=== PATIENT | male | born 1965 | race Two or more races ===

== ENCOUNTER 2021-07-17 19:24 | Inpatient (IN) | payer OTHER ==
[~2021-07-17] VITALS: Ht 152.4 cm; Wt 94.3 kg
[~2021-07-17 19:24] MED LIST: Avapro PO; HumaLOG 100 UNIT/1 ML (3ML) SUBCUTANEO; Lantus 1000 U/10 ML SUBCUTANEO; Procardia Xl 30MG TAB PO
[2021-07-17] MEDS ORDERED: METFORMIN HCL500 M3 (19:34)
[2021-07-17] MEDS ORDERED: GLIPIZIDE XL2.5 MG (19:34)
--- NOTE | 2021-07-17 19:39 | NUR ---
SE RECIBE PACIENTE ALERTA Y ORIENTADO X3 QUIEN REFIERE [facility] DONDE LE INDICARON QUE TENIA SKYLER ULCERA EN EL PIE DERECH. SE OBSERVA ULCERA SUPURANDO Y AREA ALREDEDOR ENROJECIDA Y CALIENTE AL TACTO . SE MONITOREAN LOS SV DXT EN 396. SE UBICA EN OBSERVACION.
--- NOTE | 2021-07-17 20:15 | NUR ---
SE ORIENTA PTE SOBRE TX MEDICO EL CUAL REFIERE ENTENDER.SE LE EXTRAEN MUESTRAS BAJO MEDIDAS ASEPTICAS,SE CANALIZA Y SE ADMINISTRAN MEDICAMENTOS HEATHER ORDEN MEDICA.SE NOTIFICA XRAY.
[2021-07-20] MEDS ORDERED: AVAPRO300 MG PO (13:25)
== END 2021-08-05 22:08 | disposition home or self-care (01) | DRG 638 ==
LOC: ER 19:24 → SURH 07-18 04:31
PROVIDERS: ADMIT Internal Medicine; ATTEND Internal Medicine
PROC: B53BZZZ Magnetic Resonance Imaging (MRI) of Right Lower Extremity Veins (ICD-10-PCS; 2021-07-23)
PROC: 0HBMXZZ Excision of Right Foot Skin, External Approach (ICD-10-PCS; principal; 2021-07-25)
DX: E11.621 Type 2 diabetes mellitus with foot ulcer (principal); L97.518 Non-pressure chronic ulcer of other part of right foot with other specified severity; L03.115 Cellulitis of right lower limb; L97.412 Non-pressure chronic ulcer of right heel and midfoot with fat layer exposed; L02.611 Cutaneous abscess of right foot; M86.8X7 Other osteomyelitis, ankle and foot; E11.51 Type 2 diabetes mellitus with diabetic peripheral angiopathy without gangrene; E11.628 Type 2 diabetes mellitus with other skin complications; E11.65 Type 2 diabetes mellitus with hyperglycemia; Z79.4 Long term (current) use of insulin; I10 Essential (primary) hypertension; D72.828 Other elevated white blood cell count; B95.61 Methicillin susceptible Staphylococcus aureus infection as the cause of diseases classified elsewhere; B95.2 Enterococcus as the cause of diseases classified elsewhere; B96.1 Klebsiella pneumoniae [K. pneumoniae] as the cause of diseases classified elsewhere; Z20.822 Contact with and (suspected) exposure to COVID-19
CPT/HCPCS: 73722; 73725

== ENCOUNTER → 2023-11-05 | Emergency (ER) | payer OTHER ==
[~2023-11-05] VITALS: Ht 172.7 cm; Wt 84.4 kg
[~2023-11-05] MED LIST changes: +AVAPRO300 MG PO; +ELIQUIS5 MG; +FARXIGA10 MG; +GLIPIZIDE XL2.5 MG; +HUMALOG100 UNIT/2; +LANTUS SOL100 UNIT/1; +LIPITOR40 M1; +METFORMIN HCL500 M3; +PIPERACILLIN/TAZOBACTAM SODIUM 3.375 GM VIAL IV ONE; +TOPROL XL200 MG; +ZESTRIL40 M1
[2023-11-05 21:54] LABS: HEMATOCRIT 37.8 % (39.0-48.0); HEMOGLOBIN 12.9 g/dL (13-16.00); MEAN CELL VOLUME 83.8 fL (80.0-100.00); MEAN CORPUSCULAR HEMOGLOBIN 28.7 pg (27.00-32.0); MEAN CORPUSCULAR HGB CONC 34.2 g/dl (32.0-36.0); PLATELET COUNT 389 K/uL (150-450); RED BLOOD COUNT 4.51 M/uL (4.00-6.00); RED CELL DISTRIBUTION WIDTH 14.8 % (11.5-14.5)
[2023-11-05 22:14] LABS: CALCIUM 9.1 mg/dL (8.5-10.1); CREATININE SERUM 0.99 mg/dL (0.70-1.30); GFR 77.92; POTASSIUM 4.13 mEq/L (3.5-5.1)
== END | disposition home or self-care (01) ==
LOC: ER 20:33
PROVIDERS: General Practice
DX: E22.8 Other hyperfunction of pituitary gland (principal)

== ENCOUNTER 2023-11-06 04:58 | Inpatient (IN) | payer OTHER ==
[~2023-11-06] VITALS: Ht 180.3 cm; Wt 188.7 kg
[~2023-11-06 04:58] MED LIST changes: -ELIQUIS5 MG; -FARXIGA10 MG; -HUMALOG100 UNIT/2; -LANTUS SOL100 UNIT/1; -LIPITOR40 M1; -PIPERACILLIN/TAZOBACTAM SODIUM 3.375 GM VIAL IV ONE; -TOPROL XL200 MG; -ZESTRIL40 M1
[2023-11-06] MEDS ORDERED: ZESTRIL40 M1 (05:17)
[2023-11-06] MEDS ORDERED: LIPITOR40 M1 (05:17)
[2023-11-06] MEDS ORDERED: HUMALOG100 UNIT/2 (05:18)
[2023-11-06] MEDS ORDERED: ELIQUIS5 MG (05:18)
[2023-11-06] MEDS ORDERED: FARXIGA10 MG (05:18)
[2023-11-06] MEDS ORDERED: TOPROL XL200 MG (05:18)
[2023-11-06] MEDS ORDERED: LANTUS SOL100 UNIT/1 (05:18)
--- NOTE | 2023-11-06 05:26 | NUR ---
PACIENTE ALERTA Y ORIENTADO X3 QUIEN REFIERE DOLOR EN EL PIE JEAN. PACIENTE DIABETICO EL CUAL PRESENTA ULCERA EN PIE Y REFIERE SUPURACION.
[2023-11-06] MEDS ORDERED: PIPERACILLIN/TAZOBACTAM SODIUM 3.375 GM in 0.9 % SODIUM CHLORIDE 100 ML IV SCH (06:01)
[2023-11-06] MEDS ORDERED: 0.9 % SODIUM CHLORIDE 1,000 ML IV ONE (06:15)
--- NOTE | 2023-11-06 06:22 | NUR ---
SE EDUCA A PACIENTE SOBRE TRATAMIENTO SOLICITADO POR MD EN TURNO EL CUAL REFIERE ENTENDER. SE PROCEDE A CHADD MUESTRAS DE LAB BAJO MEDIDAS ASEPTICAS Y ADMINISTRACION DE MEDICAMENTOS HEATHER ORDEN MEDICA.
[2023-11-06 07:09] LABS: HEMATOCRIT 35.7 % (39.0-48.0); HEMOGLOBIN 12.4 g/dL (13-16.00); MEAN CELL VOLUME 82.8 fL (80.0-100.00); MEAN CORPUSCULAR HEMOGLOBIN 28.7 pg (27.00-32.0); MEAN CORPUSCULAR HGB CONC 34.7 g/dl (32.0-36.0); PLATELET COUNT 392 K/uL (150-450); RED BLOOD COUNT 4.31 M/uL (4.00-6.00)
--- NOTE | 2023-11-06 07:53 | NUR ---
PTE MASCULINO ALERTA Y ORIENTADO X3 AL QUE SE LE ORIENTA SOBRE CONTINUIDAD DE TRATAMIENTO MEDICO Y REFIERE ENTENDER. SE OBSERVA PTE EN CAMINA CON BARANDAS ELEVADAS Y EN LAZAR NIVEL MAS BAJO POR PRECAUCION A CAIDA. SE OBSERVA PTE PREVIAMENTE CANALIZADO CON VENOPUNCION PATENTE CELIO DE EDEMA Y ERITEMA. RECIBIENDO 0.9 NSS BAJANDO A 125ML/HR. SE MONITOREAN S/V Y SE DOCUMENTAN EN SISTEMA.
[2023-11-06 07:56] LABS: ALBUMIN 2.8 gm/dL (3.4-5.0); BILIRUBIN TOTAL 0.47 mg/dL (0.3-1.2); CREATININE SERUM 0.84 mg/dL (0.70-1.30); GFR 94.18; GLOBULINA 5.7 G/DL (2.4-3.5); POTASSIUM 3.83 mEq/L (3.5-5.1); TOTAL PROTEIN 8.5 gm/dL (6.4-8.2)
[2023-11-06 08:32] LABS: INR 1.05; PARTIAL THROMBOPLASTIN TIME 29.3 SECONDS (22.0-34.0); PROTHROMBIN TIME 11.4 SECONDS (9.0-11.5)
[2023-11-06 08:41] LABS: PH,URINE 5.5 (5.0-8.0); URINE APPEARANCE Clear; URINE BILIRRUBIN Negative (NEGATIVE); URINE BLOOD Trace; URINE COLOR Yellow; URINE KETONE Trace (NEGATIVE); URINE LEUKOCYTE Negative; URINE NITRATE Negative; URINE PROTEIN Trace (NEGATIVE); URINE UROBILINOGEN 0.2 E.U./dl
[2023-11-06 08:47] LABS: URINE BACTERIA 13.8 uL (0.0-1933); URINE EPITHELIAL CELLS 8.8 uL (0.0-38.8); URINE RBC 14.5 uL (0.0-20.8); URINE WBC 7.1 uL (0.0-23.2)
[2023-11-06 08:56] LABS: URINE GLUCOSE >=1000 MG/DL (NEGATIVE)
[2023-11-06] MEDS ORDERED: CLINDAMYCIN PHOSPHATE 150 MG/ML (300mg) IV ONE (10:30)
[2023-11-06] MEDS ORDERED: VANCOMYCIN HCL 500 MG VIAL IV ONE (10:30)
[2023-11-06] MEDS ORDERED: CEFTRIAXONE SODIUM 2,000 MG in 0.9 % SODIUM CHLORIDE 100 ML IV SCH (10:39)
--- NOTE | 2023-11-06 10:52 | NUR ---
SE LE CONSULTA PTE CON LA JOYA VALDES Y SE LE COMIENZA CON ANTIBIOTICO POR VENA. ORDENADO POR EL KHOA GRAF. SE MANTENE BAJO OBSERVACION.
--- NOTE | 2023-11-06 16:19 | NUR ---
PTE ALERTA Y ORIENTADO X 3 ESFERAS EN CAMA CON BARANDAS ELEVADAS,SIN FAMILIAR AL MOMENTO DE LA CHERI,AREA DE VENOPUNCION PATENTE Y CELIO DE EDEMA CON FLUIDOS DE MANTENIMIENTO,EVALUADO POR CIRUJANO PENDIENTE CONSULTA CON MEDICINA INTERNA.SE FRENCH BAJO OBSERVACION.
[2023-11-06] MEDS ORDERED: GABAPENTIN 300 MG CAPSULE PO SCH (18:39)
[2023-11-06] MEDS ORDERED: ACETAMINOPHEN 500 MG GEL..CAP PO PRN (18:45)
[2023-11-06] MEDS ORDERED: INSULIN LISPRO 1,000 UNIT/10 ML UNITS SUBCUTANEO PRN (18:45)
[2023-11-06] MEDS ORDERED: DEXTROSE 50 % IN WATER 0.5 G/ML DISP.SYRIN IV PRN (18:45)
[2023-11-06] MEDS ORDERED: 0.9 % SODIUM CHLORIDE 1,000 ML IV SCH (18:45)
[2023-11-06 19:52] LABS: INR 1.08; PARTIAL THROMBOPLASTIN TIME 31.3 SECONDS (22.0-34.0); PROTHROMBIN TIME 11.7 SECONDS (9.0-11.5)
[2023-11-06 20:03] VITALS: BP 109/64; O2SAT 96
[2023-11-06 22:03] VITALS: BP 109/64; O2SAT 96
[2023-11-07 00:30] VITALS: BP 105/68; O2SAT 95
[2023-11-07] MEDS ORDERED: ATORVASTATIN CALCIUM 40 MG TABLET PO SCH (09:00)
[2023-11-07] MEDS ORDERED: VANCOMYCIN HCL 1,000 MG VIAL IV SCH ×2 (09:00→21:00)
[2023-11-07] MEDS ORDERED: ENOXAPARIN SODIUM 60 MG/0.6 ML SYRINGE SUBCUTANEO SCH (09:00)
[2023-11-07] MEDS ORDERED: FAMOTIDINE/PF 20 MG in 0.9 % SODIUM CHLORIDE 8 ML IV PUSH SCH (09:00)
[2023-11-07] MEDS ORDERED: METOPROLOL SUCCINATE 100 MG TAB.SR.24H PO SCH (09:00)
[2023-11-07] MEDS ORDERED: LISINOPRIL 40 MG TABLET PO SCH (09:00)
[2023-11-07 10:23] VITALS: BP 117/74; O2SAT 98
[2023-11-07] MEDS ORDERED: METROnidazole 500 MG TABLET PO SCH (13:00)
[2023-11-07 16:00] VITALS: BP 134/75; O2SAT 98
[2023-11-07 21:39] VITALS: BP 133/78
[2023-11-08 02:18] VITALS: BP 116/66
[2023-11-08 08:12] VITALS: BP 133/78; O2SAT 98
[2023-11-08] MEDS ORDERED: SODIUM HYPOCHLORITE 1OZ TOP SCH (11:33)
[2023-11-08] MEDS ORDERED: PIPERACILLIN/TAZOBACTAM SODIUM 4.5 GM VIAL IV NR (12:15)
[2023-11-08] MEDS ORDERED: PIPERACILLIN/TAZOBACTAM SODIUM 3.375 GM in 0.9 % SODIUM CHLORIDE 100 ML IV SCH (17:00)
[2023-11-08 18:00] VITALS: BP 140/75
[2023-11-09 01:34] VITALS: BP 136/85; O2SAT 99
[2023-11-09] MEDS ORDERED: INSULIN LISPRO 1,000 UNIT/10 ML UNITS SUBCUTANEO SCH (08:00)
[2023-11-09 08:58] VITALS: BP 118/72; O2SAT 97
[2023-11-09] MEDS ORDERED: INSULIN GLARGINE,HUM.REC.ANLOG 1,000 UNITS/10 ML UNITS SUBCUTANEO SCH (09:00)
[2023-11-09 16:32] VITALS: BP 116/61
[2023-11-10 01:10] VITALS: BP 142/80; O2SAT 99
[2023-11-10 05:43] LABS: CALCIUM 8.2 mg/dL (8.5-10.1); CREATININE SERUM 0.8 mg/dL (0.70-1.30); GFR 99.64; POTASSIUM 4.43 mEq/L (3.5-5.1)
[2023-11-10 07:00] LABS: HEMATOCRIT 31.9 % (39.0-48.0); HEMOGLOBIN 10.8 g/dL (13-16.00); MEAN CELL VOLUME 83.2 fL (80.0-100.00); MEAN CORPUSCULAR HEMOGLOBIN 28.3 pg (27.00-32.0); PLATELET COUNT 411 K/uL (150-450); RED BLOOD COUNT 3.84 M/uL (4.00-6.00); RED CELL DISTRIBUTION WIDTH 14.7 % (11.5-14.5)
[2023-11-10] MEDS ORDERED: INSULIN GLARGINE,HUM.REC.ANLOG 1,000 UNITS/10 ML UNITS SUBCUTANEO SCH (09:00)
[2023-11-10 09:07] VITALS: BP 140/82; O2SAT 98
[2023-11-10 18:44] VITALS: BP 125/84
[2023-11-11 02:09] VITALS: BP 138/72
[2023-11-11 08:31] VITALS: BP 118/65; O2SAT 99
[2023-11-11 17:07] VITALS: BP 94/57
[2023-11-12 02:17] VITALS: BP 122/75
[2023-11-12 07:59] LABS: HEMATOCRIT 31.7 % (39.0-48.0); HEMOGLOBIN 10.8 g/dL (13-16.00); MEAN CELL VOLUME 83.6 fL (80.0-100.00); MEAN CORPUSCULAR HEMOGLOBIN 28.4 pg (27.00-32.0); PLATELET COUNT 430 K/uL (150-450); RED BLOOD COUNT 3.79 M/uL (4.00-6.00); RED CELL DISTRIBUTION WIDTH 14.8 % (11.5-14.5)
[2023-11-12] MEDS ORDERED: INSULIN LISPRO 1,000 UNIT/10 ML UNITS SUBCUTANEO SCH (08:00)
[2023-11-12 08:33] VITALS: BP 140/76
[2023-11-12 08:36] LABS: ALBUMIN 2.2 gm/dL (3.4-5.0); BILIRUBIN TOTAL 0.31 mg/dL (0.3-1.2); CALCIUM 8.6 mg/dL (8.5-10.1); CREATININE SERUM 0.97 mg/dL (0.70-1.30); GFR 79.77; GLOBULINA 4.2 G/DL (2.4-3.5); POTASSIUM 4.72 mEq/L (3.5-5.1); TOTAL PROTEIN 6.4 gm/dL (6.4-8.2)
[2023-11-12] MEDS ORDERED: INSULIN GLARGINE,HUM.REC.ANLOG 1,000 UNITS/10 ML UNITS SUBCUTANEO SCH (09:00)
[2023-11-12 17:43] VITALS: BP 116/77
[2023-11-13 02:52] VITALS: BP 132/80; O2SAT 96
[2023-11-13 08:08] VITALS: BP 141/75
[2023-11-13 17:03] VITALS: BP 149/80
[2023-11-14 00:44] VITALS: BP 115/68; O2SAT 99
[2023-11-14 06:10] LABS: HEMOGLOBIN 11.4 g/dL (13-16.00); MEAN CELL VOLUME 84.3 fL (80.0-100.00); MEAN CORPUSCULAR HEMOGLOBIN 29.1 pg (27.00-32.0); MEAN CORPUSCULAR HGB CONC 34.5 g/dl (32.0-36.0); PLATELET COUNT 404 K/uL (150-450); RED BLOOD COUNT 3.92 M/uL (4.00-6.00); RED CELL DISTRIBUTION WIDTH 14.6 % (11.5-14.5)
[2023-11-14 06:40] LABS: ALBUMIN 2.5 gm/dL (3.4-5.0); ALKALINE PHOSPHATASE 58 U/L (50-136); ALT/SGPT 37 U/L (12-78); ANION GAP 9 (10.0-20.0); AST/SGOT 18 U/L (15-37); BILIRUBIN TOTAL 0.32 mg/dL (0.3-1.2); BLOOD UREA NITROGEN 18 mg/dL (7-18); BUN CREA RATIO 22 (7.0-25.0); CARBON DIOXIDE 28 mEq/L (21-32); CHLORIDE 106 mmol/L (98-107); CREATININE SERUM 0.82 mg/dL (0.70-1.30); GFR 96.84; GLOBULINA 4.4 G/DL (2.4-3.5); GLUCOSE FASTING 186 mg/dL (65-100); OSMOLALITY SERUM 284 MOSM/KG (275-295); POTASSIUM 4.49 mEq/L (3.5-5.1); SODIUM 139 mmol/L (136-145); TOTAL PROTEIN 6.9 gm/dL (6.4-8.2)
[2023-11-14 06:42] LABS: C-REACTIVE PROTEIN < 0.29 MG/DL (0.00-0.29)
[2023-11-14 06:46] LABS: ERYTHROCYTE SEDIMENTATION RATE 106 mm/hr
[2023-11-14] MEDS ORDERED: INSULIN LISPRO 1,000 UNIT/10 ML UNITS SUBCUTANEO SCH ×3 (08:00→17:00)
[2023-11-14 08:03] VITALS: BP 144/86
[2023-11-14 15:50] VITALS: BP 141/86; O2SAT 100
[2023-11-15 01:00] VITALS: BP 120/76; O2SAT 98
[2023-11-15 08:23] VITALS: BP 137/81; O2SAT 99
[2023-11-15 17:21] VITALS: BP 120/70; O2SAT 99
[2023-11-16 01:21] VITALS: BP 115/65; O2SAT 99
[2023-11-16 07:03] LABS: ALBUMIN 2.6 gm/dL (3.4-5.0); BILIRUBIN TOTAL 0.42 mg/dL (0.3-1.2); CALCIUM 9.2 mg/dL (8.5-10.1); CREATININE SERUM 0.88 mg/dL (0.70-1.30); GFR 89.26; GLOBULINA 4.2 G/DL (2.4-3.5); POTASSIUM 4.94 mEq/L (3.5-5.1); TOTAL PROTEIN 6.8 gm/dL (6.4-8.2)
[2023-11-16 07:14] LABS: HEMATOCRIT 33.8 % (39.0-48.0); HEMOGLOBIN 11.2 g/dL (13-16.00); MEAN CELL VOLUME 85.9 fL (80.0-100.00); MEAN CORPUSCULAR HEMOGLOBIN 28.6 pg (27.00-32.0); MEAN CORPUSCULAR HGB CONC 33.2 g/dl (32.0-36.0); PLATELET COUNT 387 K/uL (150-450); RED BLOOD COUNT 3.94 M/uL (4.00-6.00); RED CELL DISTRIBUTION WIDTH 14.3 % (11.5-14.5)
[2023-11-16 08:57] VITALS: BP 134/77; O2SAT 99
[2023-11-16 17:18] VITALS: BP 136/79; O2SAT 97
[2023-11-17 00:43] VITALS: BP 128/75; O2SAT 95
[2023-11-17 08:27] VITALS: BP 135/74; O2SAT 99
[2023-11-17 17:04] VITALS: BP 132/83; O2SAT 98
[2023-11-18] VITALS: BP 107/68; O2SAT 96
[2023-11-18 08:57] VITALS: BP 127/74; O2SAT 97
[2023-11-18 14:32] LABS: ERYTHROCYTE SEDIMENTATION RATE 28 mm/hr
[2023-11-18 14:35] LABS: HEMATOCRIT 35.2 % (39.0-48.0); HEMOGLOBIN 11.9 g/dL (13-16.00); MEAN CELL VOLUME 86.3 fL (80.0-100.00); MEAN CORPUSCULAR HEMOGLOBIN 29.2 pg (27.00-32.0); MEAN CORPUSCULAR HGB CONC 33.8 g/dl (32.0-36.0); PLATELET COUNT 352 K/uL (150-450); RED BLOOD COUNT 4.08 M/uL (4.00-6.00); RED CELL DISTRIBUTION WIDTH 15.2 % (11.5-14.5)
[2023-11-18 14:51] LABS: ALBUMIN 2.8 gm/dL (3.4-5.0); ALKALINE PHOSPHATASE 74 U/L (50-136); ALT/SGPT 28 U/L (12-78); ANION GAP 10 (10.0-20.0); AST/SGOT 11 U/L (15-37); BILIRUBIN TOTAL 0.35 mg/dL (0.3-1.2); BLOOD UREA NITROGEN 24 mg/dL (7-18); BUN CREA RATIO 26 (7.0-25.0); CALCIUM 8.9 mg/dL (8.5-10.1); CARBON DIOXIDE 27 mEq/L (21-32); CHLORIDE 108 mmol/L (98-107); CREATININE SERUM 0.94 mg/dL (0.70-1.30); GFR 82.72; GLOBULINA 4.5 G/DL (2.4-3.5); GLUCOSE FASTING 120 mg/dL (65-100); OSMOLALITY SERUM 286 MOSM/KG (275-295); SODIUM 141 mmol/L (136-145); TOTAL PROTEIN 7.3 gm/dL (6.4-8.2)
[2023-11-18 14:52] LABS: C-REACTIVE PROTEIN < 0.29 MG/DL (0.00-0.29)
[2023-11-18 16:33] VITALS: BP 125/70; O2SAT 97
[2023-11-18] MEDS ORDERED: INSULIN LISPRO 1,000 UNIT/10 ML UNITS SUBCUTANEO SCH (17:00)
[2023-11-19 01:00] VITALS: BP 130/89; O2SAT 96
[2023-11-19 08:00] VITALS: BP 150/89; O2SAT 96
[2023-11-19 16:54] VITALS: BP 138/71; O2SAT 96
[2023-11-20 01:25] VITALS: BP 129/80; O2SAT 96
[2023-11-20 08:21] VITALS: BP 129/71; O2SAT 97
[2023-11-20 15:40] VITALS: BP 142/87; O2SAT 96
[2023-11-21 00:09] VITALS: BP 135/79
[2023-11-21 08:14] VITALS: BP 132/87; O2SAT 98
[2023-11-21 17:27] VITALS: BP 155/88
[2023-11-22 00:09] VITALS: BP 110/64; O2SAT 98
[2023-11-22 09:42] VITALS: BP 131/81; O2SAT 97
[2023-11-22 16:31] VITALS: BP 155/76
[2023-11-22 21:50] VITALS: BP 119/67
[2023-11-23 01:32] VITALS: BP 118/74; O2SAT 96
[2023-11-23 08:35] VITALS: BP 130/76; O2SAT 98
[2023-11-23 16:44] VITALS: BP 114/66
[2023-11-24 01:51] VITALS: BP 120/70; O2SAT 97
[2023-11-24 10:40] VITALS: BP 135/77; O2SAT 97
[2023-11-24 17:15] VITALS: BP 140/77
[2023-11-25] VITALS: BP 119/58
[2023-11-25 08:46] VITALS: BP 132/77; O2SAT 97
== END 2023-11-25 10:34 | disposition home or self-care (01) | DRG 264 ==
LOC: ER 04:59 → MEDI 18:44 → SURH 18:44 → SEC-K 18:44 → SURH 21:14 → SEC-K 21:14 → SURH 11-07 16:15 → MEDI 11-07 19:33 → SURH 11-07 19:33 → MEDI 11-07 19:33
PROVIDERS: General Practice; Internal Medicine; Student in an Organized Health Care Education/Training Program; ADMIT Internal Medicine; ATTEND Internal Medicine
PROC: B44HZZZ Ultrasonography of Bilateral Lower Extremity Arteries (ICD-10-PCS; 2023-11-07)
PROC: 0JBR0ZZ Excision of Left Foot Subcutaneous Tissue and Fascia, Open Approach (ICD-10-PCS; principal; 2023-11-14)
PROC: 02HV33Z Insertion of Infusion Device into Superior Vena Cava, Percutaneous Approach (ICD-10-PCS; 2023-11-24)
DX: E11.52 Type 2 diabetes mellitus with diabetic peripheral angiopathy with gangrene (principal); M86.172 Other acute osteomyelitis, left ankle and foot; I96 Gangrene, not elsewhere classified; E11.621 Type 2 diabetes mellitus with foot ulcer; L97.529 Non-pressure chronic ulcer of other part of left foot with unspecified severity; E11.65 Type 2 diabetes mellitus with hyperglycemia; I11.9 Hypertensive heart disease without heart failure; F17.210 Nicotine dependence, cigarettes, uncomplicated; Z79.4 Long term (current) use of insulin; Z89.422 Acquired absence of other left toe(s); B96.4 Proteus (mirabilis) (morganii) as the cause of diseases classified elsewhere; B96.83 Acinetobacter baumannii as the cause of diseases classified elsewhere; B96.5 Pseudomonas (aeruginosa) (mallei) (pseudomallei) as the cause of diseases classified elsewhere; B95.2 Enterococcus as the cause of diseases classified elsewhere; B96.89 Other specified bacterial agents as the cause of diseases classified elsewhere